=== PATIENT | female | born 1975 | race Caucasian/White ===

== ENCOUNTER 2019-02-28 18:40 | Emergency (ER) | payer MEDICAID, OTHER ==
[~2019-02-28] VITALS: Ht 157.5 cm; Wt 67.8 kg
[~2019-02-28 18:40] MED LIST: CEPH-443 PO; FER325 PO; PRENAT PO
[2019-02-28 18:44] VITALS: RESP 20; Ht 157.5 cm; Wt 67.8 kg
[2019-02-28] MEDS ORDERED: KETOROLAC 60 MG INJ IM STA (19:50)
--- NOTE | 2019-02-28 21:45 | ERD ---
ER Documentation Chief Complaint Chief Complaint fever and cough since 2pm +body aches and chills HPI 43-year-old female presents with complaint of fever, cough, generalized body aches since 2 PM today. Patient denies any treatments. Patient states that there are some people in her household who are also feeling sick. Patient de nies abdominal pain, nausea, vomiting, diarrhea, photophobia, neck stiffness. Denies medical problems. She denies allergies. ROS All systems reviewed and are negative except as per history of present illness. Medications Home Meds Active Scripts Oseltamivir Phosphate* (Tamiflu*) 75 Mg Capsule, 75 MG PO BID for flu for 5 Days, CAP Prov:LAMONTE JOHNSTON 02/28/19 Ibuprofen* (Motrin*) 600 Mg Tab, 600 MG PO Q6H PRN for PAIN AND OR ELEVATED TEMP, #30 TAB Prov:AIMEERHIANNONTEMOLAMONTE 02/28/19 Cephalexin* (Keflex*) 500 Mg Capsule, 500 MG PO QID for 10 Days, CAP Prov:GENESIS POTTS SKI TOPPER 06/30/15 Reported Medications Ferrous Sulfate* (Ferrous Sulfate*) 325 Mg Tabec, 325 MG PO DAILY, TAB 06/26/15 Multivit/Min/Fol Ac/Iron/Pren* ( S*) 1 Tab Tab, 1 TAB PO AM, TAB 04/18/15 Allergies Allergies: Coded Allergies: No Known Drug Allergies (Verified Allergy, Unknown, 02/28/19) PMhx/Soc History of Surgery: Yes ( X1) Anesthesia Reaction: No Hx Neurological Disorder: No Hx Respiratory Disorders: No Hx Cardiac Disorders: No Hx Psychiatric Problems: No Hx Miscellaneous Medical Probl: No Hx Alcohol Use: No Hx Substance Use: No Hx Tobacco Use: No Smoking Status: Never smoker FmHx Family History: No diabetes, No coronary disease, No other Physical Exam Vitals Vital Signs Date Temp Pulse Resp B/P (MAP) Pulse Ox O2 O2 Flow FiO2 Time Delivery Rate 02/28/19 99.1 105 108/59 97 Room Air 22:16 (75) 02/28/19 102.3 126 20 135/65 95 18:44 (88) Physical Exam Const: No acute distress Head: Atraumatic Eyes: Normal Conjunctiva ENT: Normal External Ears, Nose and Mouth. Neck: Full range of motion. No meningismus. Resp: Clear to auscultation bilaterally Cardio: Regular rate and rhythm, no murmurs Abd: Tenderness to palpation in the upper right quadrant. Positive Carter's. No McBurney's tenderness. Skin: No petechiae or rashes Back: No midline or flank tenderness Ext: No cyanosis, or edema Neur: Awake and alert Psych: Normal Mood and Affect Result Diagram: 02/28/19200002/28/192000 Results 24 hrs Laboratory Tests Test 02/28/19 20:00 02/28/19 20:01 POC Beta HCG, Qualitative NEGATIVE White Blood Count 10.0 10^3/ul Red Blood Count 4.17 10^6/ul Hemoglobin 12.8 g/dl Hematocrit 37.4 % Mean Corpuscular Volume 89.7 fl Mean Corpuscular Hemoglobin 30.7 pg Mean Corpuscular Hemoglobin Concent 34.2 g/dl Red Cell Distribution Width 12.9 % Platelet Count 348 10^3/UL Mean Platelet Volume 9.6 fl Immature Granulocytes % 0.400 % Neutrophils % 72.7 % Lymphocytes % 10.7 % Monocytes % 12.0 % Eosinophils % 3.5 % Basophils % 0.7 % Nucleated Red Blood Cells % 0.0 /100WBC Immature Granulocytes # 0.040 10^3/ul Neutrophils # 7.2 10^3/ul Lymphocytes # 1.1 10^3/ul Monocytes # 1.2 10^3/ul Eosinophils # 0.4 10^3/ul Basophils # 0.1 10^3/ul Nucleated Red Blood Cells # 0.0 10^3/ul Sodium Level 135 mmol/L Potassium Level 4.1 mmol/L Chloride Level 101 mmol/L Carbon Dioxide Level 24 mmol/L Anion Gap 10 Blood Urea Nitrogen 9 mg/dl Creatinine 0.95 mg/dl Est Glomerular Filtrat Rate mL/min > 60 mL/min Glucose Level 97 mg/dl Calcium Level 9.7 mg/dl Total Bilirubin 0.3 mg/dl Direct Bilirubin 0.00 mg/dl Indirect Bilirubin 0.3 mg/dl Aspartate Amino Transf (AST/SGOT) 34 IU/L Alanine Aminotransferase (ALT/SGPT) 42 IU/L Alkaline Phosphatase 89 IU/L Total Protein 7.4 g/dl Albumin 4.3 g/dl Globulin 3.10 g/dl Albumin/Globulin Ratio 1.38 Current Medications Medications Dose Sig/Andrew Start Time Status Last (Trade) Ordered Route PRN Stop Time Admin Dose Reason Admin Ketorolac 60 mg ONCE STAT 02/28/19 DC 02/28/19 Tromethamine IM 19:50 20:12 (Toradol) 02/28/19 19:52 Procedures/MDM DIAGNOSTIC IMAGING REPORT Patient: EDEL THOMAS : 1975 Age: 43 Sex: F MR #: [id number] DOS: 02/28/19 1950 Ordering MD: LAMONTE JOHNSTON Location: [facility] Room/Bed: PROCEDURE: US Abdomen. CLINICAL INDICATION: Abdominal pain. TECHNIQUE: Multiple real-time images were acquired of the patient's abdomen and retroperitoneum utilizing a high resolution transducer with Doppler interrogation. Images were reviewed on a PACS workstation COMPARISON: None available FINDINGS: The liver demonstrates mild enlargement in size, measuring 18.5 cm. There is diffuse heterogeneous hyperechoic echotexture consistent with moderate fatty infiltration. The liver capsule margins are smooth without evidence of nodularity. There is no intrahepatic biliary ductal dilatation or masses. The portal vein demonstrates normal hepatopetal flow. The gallbladder is surgically absent. No intra or extrahepatic biliary dilatation is seen. The common bile duct measures 5.9 mm in maximal dimension, within normal limits status post cholecystectomy. The visualized portions of the pancreas are unremarkable. No free fluid is identified. The right kidney is normal size, and demonstrates normal echogenicity and morphology. The right kidney measures 11.4 cm in long dimension. There is no dilatation of the pelvicaliceal system. There are no perinephric fluid collections. There are no areas of increased echogenicity to suggest nephrolithiasis. The visualized portions of the aorta are normal in appearance. IMPRESSION: 1. Hepatomegaly with moderate fatty infiltration. 2. Otherwise, normal sonographic findings of the abdomen. RPTAT: HGAS .Kervin Amaya MD, Date Time Electronically viewed and signed by .Kervin Amaya MD, MD on 02/28/2019 21:19 .S/ CC: LAMONTE JOHNSTON [id number] MDM: Patient exhibited upper right quadrant pain and there was some concern for possible Zhane cystitis. Gallbladder ultrasound was ordered and results within normal limits. In addition patient's labs were within normal limits. However, influenza did come back positive which accounts for her symptoms. Patient given Toradol in the ER and prescription for Tamiflu and ibuprofen. I have low suspicion for strep throat based on history and exam findings, as well as jodi khoury not meeting centor criteria for rapid strep testing. I have low suspicion for bacterial sinusitis, pneumonia, tuberculosis, meningitis, pneumothorax, PE, aspirated foreign body, respiratory distress, acute heart failure or other life threatening etiology based on patient history and exam findings. Patient advised to rest and stay well hydrated. Patient discharged with strict ER precautions. Patient advised to follow up with PMD. All questions answered at discharge. Departure Diagnosis: Primary Impression: Influenza Condition: Stable LAMONTE JOHNSTON Feb 28, 2019 21:45
[2019-02-28] MEDS ORDERED: IBUP-1542 PO (21:49)
[2019-02-28] MEDS ORDERED: OSEL75CA23 PO (21:49)
[2019-02-28 22:16] VITALS: BP 108/59; PULSE 105
== END 2019-02-28 22:17 | disposition home or self-care (01) ==
LOC: FTE 18:40
DX: J10.1 Influenza due to other identified influenza virus with other respiratory manifestations (principal)
CPT/HCPCS: 36415; 76705; 80053; 81025; 85025; 87400; 96372; J1885; Z7502